=== PATIENT | female | born 1950 | race Caucasian/White ===

== ENCOUNTER 2023-12-24 06:34 | Emergency (ER) | payer MEDICARE ==
[~2023-12-24] VITALS: Ht 144.8 cm; Wt 61.4 kg
[2023-12-24 07:44] VITALS: TEMP 98
[2023-12-24 09:16] VITALS: BP 184/105; PULSE 71; RESP 16; O2SAT 98
== END 2023-12-24 09:25 | disposition home or self-care (01) ==
LOC: ER 06:36
DX: M71.22 Synovial cyst of popliteal space [Baker], left knee (principal); Z88.8 Allergy status to other drugs, medicaments and biological substances; Z88.2 Allergy status to sulfonamides; Z88.1 Allergy status to other antibiotic agents
CPT/HCPCS: 73560; 93971; 99284

== ENCOUNTER 2024-03-24 15:26 | Outpatient (CLI) | payer MEDICARE | END 2024-03-24 23:59 | disposition home or self-care (01) | LOC: MRI02 15:26 | PROVIDERS: ATTEND Physician Assistant Surgical | DX: S83.282A Other tear of lateral meniscus, current injury, left knee, initial encounter (principal); M71.22 Synovial cyst of popliteal space [Baker], left knee; M25.562 Pain in left knee; X58.XXXA Exposure to other specified factors, initial encounter; Y93.89 Activity, other specified; Y92.89 Other specified places as the place of occurrence of the external cause; Y99.8 Other external cause status | CPT/HCPCS: 73721 ==